=== PATIENT | female | born 1930 | race Caucasian/White ===

== ENCOUNTER → 2016-12-30 | Outpatient (CLI) | payer MEDICARE ==
[~2016-12-30] MED LIST: ALPRAZOLAM0.5 M3 PO; AZITHROMYCIN500 M1 PO; BUDESONIDE0.25 MG/1 IH; FUROSEMIDE 20MG20 MG PO; IPRATROPIUM BROM3 M1 IH; LEVOTHYROXINE0.15 M1 PO; METOPROLOL SUCC50 M4 PO; OMEPRAZOLE20 MG PO; PROAIR HFA0.09 MG/AC IH
--- NOTE | 2016-12-30 14:38 | RADIOLOGY REPORT PS360 ---
BONE DENSITOMETRY(HIP:LT SPINE HISTORY: OSTEOPOROSIS ORDERING PHYSICIAN: Jd Sharpe MD PATIENT AGE: 86 years COMPARISON: None FINDINGS: The BMD measured from L1 to L4 0.533 g percent meters squared with a T score of -5.4 consistent with osteoporosis. The mean density of the hips is 0.474 g percent meters squared with a T score of -4.2 consistent with osteoporosis. Fracture risk is high and treatment is recommended if not already prescribed. IMPRESSION: Osteoporosis. Recommend follow-up exam December 2017 to monitor treatment
== END ==
LOC: RAD 13:00
DX: M81.0 Age-related osteoporosis without current pathological fracture (principal)